=== PATIENT | male | born 1965 | race Two or more races ===

== ENCOUNTER 2016-09-25 11:55 | Inpatient (IN) | payer MEDICAID, OTHER ==
[~2016-09-25] VITALS: Ht 175.3 cm; Wt 81.4 kg
[2016-09-25] MEDS ORDERED: SODIUM CHLORIDE 0.9% 1,000 ML IV ONE ×3 (12:15→18:30)
[2016-09-25 13:38] LABS: Basophils # (auto) 0.1 uL; Basophils % (auto) 0.7 % (0.0-2.0); DEFINITIVE VIEW TRANSMISSION; Eosinophils # (auto) 0.1 uL; Eosinophils % (auto) 0.6 % (0.0-7.0); Hemoglobin 18.6 g/dL (13.5-17.5); Lymphocytes # (auto) 2.7 uL; Lymphocytes % (auto) 22.4 % (10.0-50.0); Mean Corpuscular Hemoglobin 30.4 pg (28.0-32.0); Mean Corpuscular Hgb Conc. 32.9 g/dL (32.0-36.0); Mean Corpuscular Volume 92.3 fL (80.0-100.0); Mean Platelet Volume 9.6 fL (7.4-10.4); Monocytes # (auto) 0.6 uL; Monocytes % (auto) 4.9 % (0.0-12.0); Neutrophils # (auto) 8.5 uL; Neutrophils % (auto) 71.4 % (37.0-80.0); Platelet Count (auto) 269 10^3/uL (140-450); Red Cell Distribution Width 14.9 % (11.6-16.0); White Blood Cell 11.9 10^3/uL (4.4-10.8)
[2016-09-25 13:47] LABS: Hematocrit 56.6 % (41.0-53.0)
[2016-09-25 15:20] LABS: Albumin 3.7 g/dL (3.4-5.0); Anion Gap 19 (5-15); Aspartate Aminotransferase 78 U/L (15-37); BUN/Creatinine Ratio 17.5; Blood Urea Nitrogen 11 mg/dL (7-18); Calcium 7.5 mg/dL (8.5-10.1); Carbon Dioxide 18 mmol/L (21-32); Chloride 105 mmol/L (98-107); GFR African American 174 mL/min; GFR Non-African American 144 mL/min; Glucose 73 mg/dL (74-106); Potassium 3.7 mmol/L (3.5-5.1); Salicylate 2.7 mg/dL (2.8-20.0); Sodium 142 mmol/L (136-145)
[2016-09-25 15:23] LABS: Acetaminophen < 2.0 ug/mL (10-30); Alkaline Phosphatase 61 U/L (45-117); Bilirubin, Total 0.3 mg/dL (0.2-1.0); Total Protein 7.4 g/dL (6.4-8.2)
[2016-09-25] MEDS ORDERED: SODIUM CHLORIDE 0.9% 1,000 ML IVB ONE (17:24)
[2016-09-25] MEDS ORDERED: HYDROcodone-ACET 5/325MG TAB PO PRN (18:00)
[2016-09-25] MEDS ORDERED: LORazepam 2MG/ML-1ML VIAL IV ONE (18:00)
[2016-09-25] MEDS ORDERED: LORazepam 2MG/ML-1ML VIAL IV PRN (18:00)
[2016-09-25] MEDS ORDERED: THIAMINE HCL 100 MG/ML 2ML VIAL IV ONE (18:00)
[2016-09-25] MEDS ORDERED: PROMETHAZINE HCL 25 MG/ML 1ML IV PRN (18:00)
[2016-09-25] MEDS ORDERED: D5W/SOD CHLO 0.9% 1,000 ML IV ONE (18:00)
[2016-09-25] MEDS ORDERED: NITROGLYCERIN 0.4 MG SL TAB SL PRN (18:00)
[2016-09-25] MEDS ORDERED: ACETAMINOPHEN 500 MG TAB PO PRN (18:00)
[2016-09-25] MEDS ORDERED: MORPHINE SULF INJ 2 MG/ML SYRINGE 1ML IV PRN ×2 (18:00)
[2016-09-25] MEDS ORDERED: FOLIC ACID 1 MG TAB PO ONE (18:00)
[2016-09-25 18:10] LABS: Lactic Acid 4.8 mmol/L (0.4-2.0)
[2016-09-25 18:12] LABS: REFLEX LACTIC ACID YES OR NO YES
[2016-09-25] MEDS ORDERED: LORazepam 0.5 MG TAB PO PRN (18:15)
[2016-09-25] MEDS ORDERED: SODIUM CHLORIDE 0.9% 2,000 ML IV ONE (18:30)
[2016-09-25] MEDS: SODIUM CHLORIDE 0.9% 1,000 ML IV SCH (18:30)
[2016-09-25] MEDS ORDERED: LORazepam 0.5 MG TAB PO ONE (18:30)
[2016-09-25 18:39] LABS: INR 1.03 (0.9-1.15); Partial Thromboplastin Time 26.4 sec (22.64-33.71); Prothrombin Time 10.6 sec (9.37-12.3)
[2016-09-25] MEDS: chlordiazePOXIDE HCL 5 MG CAP PO SCH (19:09)
[2016-09-25 19:50] LABS: Temperature: 22.5 C (20.0-25.0)
[2016-09-25 20:30] LABS: Lactic Acid 5.1 mmol/L (0.4-2.0)
[2016-09-25 20:57] LABS: REFLEX LACTIC ACID YES OR NO YES
[2016-09-25] MEDS: LORazepam 2MG/ML-1ML VIAL IV PRN (21:04)
[2016-09-26] MEDS: chlordiazePOXIDE HCL 5 MG CAP PO SCH ×3 (00:38→12:06)
[2016-09-26] MEDS: LORazepam 2MG/ML-1ML VIAL IV PRN ×5 (00:38→13:56)
[2016-09-26] MEDS: SODIUM CHLORIDE 0.9% 1,000 ML IV SCH ×3 (01:17→13:56)
[2016-09-26 03:54] LABS: Albumin 3.2 g/dL (3.4-5.0); BUN/Creatinine Ratio 17.3; Bilirubin, Total 0.9 mg/dL (0.2-1.0); Calcium 7.2 mg/dL (8.5-10.1); Potassium 4.1 mmol/L (3.5-5.1); Total Protein 5.9 g/dL (6.4-8.2)
[2016-09-26 04:32] LABS: Basophils # (auto) 0.1 uL; Basophils % (auto) 1.3 % (0.0-2.0); Eosinophils # (auto) 0 uL; Eosinophils % (auto) 0.3 % (0.0-7.0); Hematocrit 39.7 % (41.0-53.0); Hemoglobin 13.2 g/dL (13.5-17.5); Lymphocytes # (auto) 1.8 uL; Lymphocytes % (auto) 19.1 % (10.0-50.0); Mean Corpuscular Hemoglobin 30.7 pg (28.0-32.0); Mean Corpuscular Hgb Conc. 33.2 g/dL (32.0-36.0); Mean Corpuscular Volume 92.3 fL (80.0-100.0); Mean Platelet Volume 8.7 fL (7.4-10.4); Monocytes # (auto) 0.9 uL; Monocytes % (auto) 9.9 % (0.0-12.0); Neutrophils # (auto) 6.6 uL; Neutrophils % (auto) 69.4 % (37.0-80.0); Red Cell Distribution Width 14.8 % (11.6-16.0); White Blood Cell 9.5 10^3/uL (4.4-10.8)
[2016-09-26 04:36] LABS: Platelet Count (auto) 177 10^3/uL (140-450)
[2016-09-26] MEDS ORDERED: THIAMINE HCL 100 MG/ML 2ML VIAL IV SCH (10:00)
[2016-09-26] MEDS ORDERED: FOLIC ACID 1 MG TAB PO SCH (10:00)
[2016-09-26 13:58] VITALS: BP 134/84
[2016-09-26 15:27] LABS: Urine Bilirubin Negative (Negative); Urine Blood Negative /uL (Negative); Urine Color Yellow (Yellow); Urine Glucose Normal (Normal); Urine Nitrite Negative (Negative); Urine RBC <1 /hpf (0 - 3); Urine Squamous Epithelial Cell FEW /hpf (<5); Urine Urobilinogen Normal (Negative)
[2016-09-26 15:30] LABS: Urine Ketone 2+ (Negative)
== END 2016-09-26 15:19 | disposition home or self-care (01) | DRG 775 ==
LOC: EDBD 11:59 → ER 11:59 → TELE 12:00
PROVIDERS: ADMIT Internal Medicine; ATTEND Internal Medicine
DX: F10.220 Alcohol dependence with intoxication, uncomplicated (principal); I95.9 Hypotension, unspecified; E87.1 Hypo-osmolality and hyponatremia; F32.9 Major depressive disorder, single episode, unspecified; Y90.8 Blood alcohol level of 240 mg/100 ml or more; E16.2 Hypoglycemia, unspecified; D72.829 Elevated white blood cell count, unspecified; F17.210 Nicotine dependence, cigarettes, uncomplicated; Z82.49 Family history of ischemic heart disease and other diseases of the circulatory system; Z83.3 Family history of diabetes mellitus; Z87.820 Personal history of traumatic brain injury
CPT/HCPCS: 36415; 70450; 71010; 74176; 80053; 80061; 80320; 80329; 81001; 82550; 82607; 82746; 83605; 84443; 85025; 85610; 85652; 85730; 87040; 93005; 96361; 96374; 96375; 96376; 99291; G0434